=== PATIENT | female | born 1970 | race Caucasian/White ===

== ENCOUNTER → 2016-07-13 | Outpatient (CLI) | payer BC | LOC: FIMAGING 07:50 | DX: Z12.31 Encounter for screening mammogram for malignant neoplasm of breast (principal); Z80.3 Family history of malignant neoplasm of breast | CPT/HCPCS: G0202 ==

== ENCOUNTER 2016-11-23 21:40 | Emergency (ER) | payer BC ==
[2016-11-23 21:48] VITALS: RESP 18; TEMP 97.7; O2SAT 98
--- NOTE | 2016-11-23 22:06 | CPEKG ---
Heart Rate: 85 RR Interval: 706 P-R Interval: 140 QRSD Interval: 88 QT Interval: 372 QTC Interval: 443 P Bloomingrose: 69 QRS Bloomingrose: 69 T Wave Bloomingrose: 59 EKG Severity - NORMAL ECG - EKG Impression: SINUS RHYTHM Electronically Signed By: Enoch Henderson 23-Nov-2016 22:19:00
[2016-11-23] MEDS ORDERED: NS 1,000 ML IV ONE (22:11)
--- NOTE | 2016-11-23 22:16 | EDPHY ---
H & P Stated Complaint: BRIEF VISION LOSS IN R EYE AND DIFF SPEAKING RESOLVED Time Seen by Provider: 11/23/16 22:00 HPI/ROS: CHIEF COMPLAINT: Vision loss and trouble word finding HISTORY OF PRESENT ILLNESS: The patient is a 46-year-old female with a history of migraines including visual aura. She also has severe anxiety and stress and takes Klonopin and Lunesta. She denies other past medical history. She states that around 8 o'clock this evening she had an aura it in her right eye which include central vision loss. She then noticed that she had trouble with word finding. She could speak the 1st half of a sentence without any difficulty or slurring but then had trouble finding the right words to conclude the sentence. Her daughter told her she should call her sister and come to the hospital. Her symptoms resolved after about 15 minutes. She did not have a headache. She states that the visual changes are typical for her migraines but the trouble with word finding is not. She also typically has a headache afterwards and does not today. She did not have any weakness numbness or paresthesias. She did not have any imbalance. She denies recent trauma or infection. She is now asymptomatic except for extremely scared and anxious. REVIEW OF SYSTEMS: Constitutional: denies: chills, fever, recent illness, recent injury EENTM: denies: blurred vision, double vision, nose congestion Respiratory: denies: cough, shortness of breath Cardiac: denies: chest pain, irregular heart rate, lightheadedness, palpitations Gastrointestinal/Abdominal: denies: abdominal pain, diarrhea, nausea, vomiting, blood streaked stools Genitourinary: denies: dysuria, frequency, hematuria, pain Musculoskeletal: denies: joint pain, muscle pain Skin: denies: lesions, rash, jaundice, bruising Neurological: See HPI, denies: headache, numbness, paresthesia, tingling, dizziness, weakness Hematologic/Lymphatic: denies: blood clots, easy bleeding, easy bruising Immunologic/allergic: denies: HIV/AIDS, transplant EXAM: GENERAL: Well-appearing, well-nourished and in no acute distress. HEAD: Atraumatic, normocephalic. EYES: Pupils equal round and reactive to light, extraocular movements intact, sclera anicteric, conjunctiva are normal. ENT: TMs normal, nares patent, oropharynx clear without exudates. Moist mucous membranes. NECK: Normal range of motion, supple without lymphadenopathy or JVD. LUNGS: Breath sounds clear to auscultation bilaterally and equal. No wheezes rales or rhonchi. HEART: Regular rate and rhythm without murmurs, rubs or gallops. ABDOMEN: Soft, nontender, normoactive bowel sounds. No guarding, no rebound. No masses appreciated. BACK: No CVA tenderness, no spinal tenderness, step-offs or deformities EXTREMITIES: Normal range of motion, no pitting or edema. No clubbing or cyanosis. NEUROLOGICAL: Cranial nerves II through XII grossly intact. Normal speech, normal gait. 5/5 strength, normal movement in all extremities, normal sensation , normal reflexes, normal cerebellar exam PSYCH: Normal mood, normal affect. SKIN: Warm, dry, normal turgor, no visible rashes or lesions. Source: Patient Exam Limitations: No limitations - Personal History LMP (Females 10-55): 8-14 Days Ago Current Tetanus/Diphtheria Vaccine: Yes Current Tetanus Diphtheria and Acellular Pertussis (TDAP): Yes - Medical/Surgical History Hx Asthma: No Hx Chronic Respiratory Disease: No Hx Diabetes: No Hx Cardiac Disease: No Hx Renal Disease: No Hx Cirrhosis: No Hx Alcoholism: No Hx HIV/AIDS: No Hx Splenectomy or Spleen Trauma: No Other PMH: . WISDOM TEETH OUT 3 WEEKS AGO. MIGRAINES. - Family History Significant Family History: No pertinent family hx - Social History Smoking Status: Former smoker Alcohol Use: Sober Drug Use: None Constitutional: Initial Vital Signs Temperature (C) 36.5 C 11/23/16 21:42 Heart Rate 98 11/23/16 21:42 Respiratory Rate 18 11/23/16 21:42 Blood Pressure 115/81 H 11/23/16 21:42 O2 Sat (%) 98 11/23/16 21:42 O2 Delivery Mode Room Air Allergies/Adverse Reactions: No Known Allergies Allergy (Unverified 11/23/16 21:42) Home Medications: Medication Instructions Recorded CLONAZEPAM 11/23/16 Lunesta 11/23/16 Medical Decision Making - Diagnostics EKG Interpretation: An EKG obtained and was read and documented in trace view. Please see trace view for full reading and report. Sinus rhythm no acute ischemic changes Imaging Results: Imaging Impressions Brain MRI 11/23/16 22:11 Impression: Normal MRI examination of the brain.. Results called to Dr. Henderson at 11:15 PM. Imaging: Discussed imaging studies w/ journeyman tool and die maker Radiologist ED Course/Re-evaluation: 11:15 p.m. the patient remains asymptomatic. She is relieved with the MRI results. I will page Neurology to discuss. 11:21 p.m. I discussed the case with Dr. Hernandez from Neurology. He agrees that this is likely a migraine and feels safe discharging the patient. 11:25 p.m. I discussed the plan with the patient. She is feeling completely better and is eager to go home. She is relieved. I will have her follow up with Neurology. Differential Diagnosis: Partial list of the Differential diagnosis considered include but were not limited to; migraine, TIA and although unlikely based on the history and physical exam, I also considered CVA, tumor aneurysm, trauma, infection. I discussed these differential diagnoses and the plan with the patient as well as the usual and expected course. The patient understands that the diagnosis is provisional and that in medicine we are not always correct and that further workup is often warranted. Usual and customary warnings were given. All of the patient's questions were answered. The patient was instructed to return to the emergency department should the symptoms at all worsen or return, otherwise to followup with the physician as we discussed. - Data Points Laboratory Results: Laboratory Results 11/23/16 22:17 11/23/16 22:17 11/23/16 11/23/16 11/23/16 22:17 22:17 22:17 WBC RBC Hgb Hct MCV MCH MCHC RDW Plt Count MPV Neut % (Auto) Lymph % (Auto) Spink % (Auto) Eos % (Auto) Baso % (Auto) Nucleat RBC Rel Count Absolute Neuts (auto) Absolute Lymphs (auto) Absolute Monos (auto) Absolute Eos (auto) Absolute Basos (auto) Absolute Nucleated RBC Immature Gran % Immature Gran # PT 13.2 SEC SEC (12.0-15.0) INR 1.01 (0.83-1.16) APTT 29.6 SEC SEC (23.0-38.0) Sodium 142 mEq/L mEq/L (134-144) Potassium 4.5 mEq/L mEq/L (3.5-5.2) Chloride 107 mEq/L mEq/L (97-110) Carbon Dioxide 23 mEq/l mEq/l (22-31) Anion Gap 12 mEq/L mEq/L (8-16) BUN 6 mg/dL L mg/dL (7-23) Creatinine 0.7 mg/dL mg/dL (0.6-1.0) Estimated GFR > 60 Glucose 89 mg/dL mg/dL (70-100) Calcium 10.0 mg/dL mg/dL (8.5-10.4) Beta HCG, Qual NEGATIVE 11/23/16 22:17 WBC 7.56 10^3/uL 10^3/uL (3.80-9.50) RBC 4.63 10^6/uL 10^6/uL (4.18-5.33) Hgb 13.6 g/dL g/dL (12.6-16.3) Hct 40.8 % % (38.0-47.0) MCV 88.1 fL fL (81.5-99.8) MCH 29.4 pg pg (27.9-34.1) MCHC 33.3 g/dL g/dL (32.4-36.7) RDW 12.8 % % (11.5-15.2) Plt Count 279 10^3/uL 10^3/uL (150-400) MPV 10.4 fL fL (8.7-11.7) Neut % (Auto) 46.2 % % (39.3-74.2) Lymph % (Auto) 37.2 % % (15.0-45.0) Spink % (Auto) 12.8 % % (4.5-13.0) Eos % (Auto) 2.9 % % (0.6-7.6) Baso % (Auto) 0.8 % % (0.3-1.7) Nucleat RBC Rel Count 0.0 % % (0.0-0.2) Absolute Neuts (auto) 3.49 10^3/uL 10^3/uL (1.70-6.50) Absolute Lymphs (auto) 2.81 10^3/uL 10^3/uL (1.00-3.00) Absolute Monos (auto) 0.97 10^3/uL H 10^3/uL (0.30-0.80) Absolute Eos (auto) 0.22 10^3/uL 10^3/uL (0.03-0.40) Absolute Basos (auto) 0.06 10^3/uL 10^3/uL (0.02-0.10) Absolute Nucleated RBC 0.00 10^3/uL 10^3/uL (0-0.01) Immature Gran % 0.1 % % (0.0-1.1) Immature Gran # 0.01 10^3/uL 10^3/uL (0.00-0.10) PT INR APTT Sodium Potassium Chloride Carbon Dioxide Anion Gap BUN Creatinine Estimated GFR Glucose Calcium Beta HCG, Qual Medications Given: Discontinued Medications Sodium Chloride (Ns) 1,000 mls @ 500 mls/hr IV EDNOW ONE PRN Reason: Protocol Stop: 11/24/16 00:10 Last Admin: 11/23/16 22:24 Dose: 1,000 mls Lorazepam (Ativan) 1 mg PO EDNOW ONE Stop: 11/23/16 22:29 Last Admin: 11/23/16 22:31 Dose: 1 mg Departure - Departure Disposition: Home, Routine, Self-Care Clinical Impression: Migraine aura without headache Condition: Fair Instructions: Migraine Headache (ED) Referrals: Ravi Linares DO [Medical Doctor] - As per Instructions
[2016-11-23] MEDS ORDERED: LORazepam 1 MG TAB PO ONE (22:28)
[2016-11-23 22:37] LABS: % IMMATURE GRANULYOCYTES 0.1 % (0.0-1.1); ABSOLUTE IMMATURE GRANULOCYTES 0.01 10^3/uL (0.00-0.10); ADD DIFF? NO; ADD MORPH? NO; ADD SCAN? NO; ATYPICAL LYMPHOCYTE FLAG 20 (0-99); FRAGMENT RBC FLAG 0 (0-99); HEMATOCRIT 40.8 % (38.0-47.0); HEMOGLOBIN 13.6 g/dL (12.6-16.3); LEFT SHIFT FLG 0 (0-99); LIPEMIA HEMOLYSIS FLAG 80 (0-99); MEAN CELL HEMOGLOBIN 29.4 pg (27.9-34.1); MEAN CELL HEMOGLOBIN CONCENTR. 33.3 g/dL (32.4-36.7); MEAN CELL VOLUME 88.1 fL (81.5-99.8); MEAN PLATELET VOLUME 10.4 fL (8.7-11.7); PLATELET CLUMPS FLAG 0 (0-99); PLATELET COUNT 279 10^3/uL (150-400); RED BLOOD CELL COUNT 4.63 10^6/uL (4.18-5.33); RED CELL DISTRIBUTION WIDTH 12.8 % (11.5-15.2)
[2016-11-23] MEDS ORDERED: GADOBUTROL 10 ML VIAL IVP ONE (22:42)
[2016-11-23 22:46] LABS: INR 1.01 (0.83-1.16); PROTIME(PATIENT) 13.2 SEC (12.0-15.0)
[2016-11-23 22:47] LABS: APTT 29.6 SEC (23.0-38.0)
[2016-11-23 22:55] LABS: ANION GAP 12 mEq/L (8-16); CARBON DIOXIDE 23 mEq/l (22-31); CHLORIDE 107 mEq/L (97-110); CREATININE 0.7 mg/dL (0.6-1.0); GLOMERULAR FILTRATION RATE > 60; GLUCOSE 89 mg/dL (70-100); POTASSIUM 4.5 mEq/L (3.5-5.2); SODIUM 142 mEq/L (134-144)
[2016-11-23 23:56] VITALS: BP 107/72; PULSE 86
== END 2016-11-23 23:56 | disposition home or self-care (01) ==
DX: G43.109 Migraine with aura, not intractable, without status migrainosus (principal); Z87.891 Personal history of nicotine dependence
CPT/HCPCS: A9585

== ENCOUNTER → 2017-08-14 | Outpatient (CLI) | payer BC | LOC: FIMAGING 08:51 | DX: Z12.31 Encounter for screening mammogram for malignant neoplasm of breast (principal); Z80.3 Family history of malignant neoplasm of breast ==

== ENCOUNTER → 2018-09-25 | Outpatient (CLI) | payer BC | LOC: FIMAGING 09:19 | DX: Z12.31 Encounter for screening mammogram for malignant neoplasm of breast (principal); Z80.3 Family history of malignant neoplasm of breast ==

== ENCOUNTER 2018-10-01 13:19 | Observation (INO) | payer BC ==
--- NOTE | 2018-10-01 05:32 | PDGENHP ---
History and Physical History and Physical: Assessment and Plan: 1. Rectocele Marie has a symptomatic rectocele and stress urinary incontinence. We reviewed all conservative and surgical options. At the end of our discussion she is interested in surgical repair. This will be a posterior colporrhaphy, perineorrhaphy, and mid urethral sling. She will return for a preoperative appointment. 2. Female stress incontinence Subjective Subjective: Patient ID: Marie Broderick is a 47 y.o. female who presents to [facility] for relapse. HPI Marie Broderick presents for a preoperative visit. She is scheduled for a posterior colporrhaphy, perineorrhaphy, and mid urethral sling. The risks, benefits, and alternatives were presented and informed consent was obtained. 40 minutes of this 40 minute appointment was spent counceling, reviewing the procedure in detail, and discussing the preoperative and postoperative instructions. Below is a copy of our prior visit note. Marie is a 47-year-old para 2 woman. She has noticed a bulge protruding from the back of her vagina. She finds it difficult at times to pass bowel movements unless she reduces the bulge. She also leaks urine with coughing laughing and sneezing. She has no difficulty emptying her bladder. She has done online research and think she has a rectocele. She lives in [place]. She is currently and not sexually active. PastMedicalHistory Past Medical History: Diagnosis Date Depression ADD Hypothyroidism Neurologic disorder Migraines PastSurgicalHistory Past Surgical History: Procedure Laterality Date BREAST SURGERY Augmentation/implant removal MALIK 2002 LIPOSUCTION 1994 WISDOM TOOTH EXTRACTION CURRENT MEDICATIONS: Current Outpatient Medications Medication Sig amphetamine-dextroamphetamine (AMPHETAMINE-DEXTROAMPHETAMINE) 20 mg tablet Take 1 tablet as instructed 2 times daily. One QAM and 1/2 QPM eszopiclone (LUNESTA) 3 mg tablet Take 3 mg by mouth nightly at bedtime. liothyronine (CYTOMEL) 25 mcg tablet No current facility-administered medications for this visit. ALLERGIES: Patient has no known allergies. I have reviewed, verified and agree with the past medical, surgical, , family, social and ROS history as documented by the RN today. Objective Objective: Vital Signs: There were no vitals taken for this visit. Physical Exam Gen: This is an alert, well developed woman in no distress. Neuro: She moves all extremities. Psych: She is appropriate, oriented, with normal affect. Neck: No thyroid enlargement, adenopathy, or tenderness. Lungs: Clear to ascultation, no wheezes or rales. Heart: Regular rate and rhythm without obvious murmurs. Abdomen: Soft, non-tender, without guarding, rebound, or masses. Extremities: No edema or cyanosis. Pelvic: Normal external genitalia. Non-gaping introitus, vagina without discharge, adequately estrogenized, is a grade 2/grade 3 mostly lower rectocele. The perineal body is thinned. Anal sphincter tone is normal. The urethra is mobile with obvious leakage of urine with strong coughing. Cervix without lesions or discharge. Uterus normal sized, mobile, non-tender. Adnexa non-tender without enlargement. DATA: I have reviewed the pertinent medical records. TIME/COMMUNICATION: I personally spent a total of 40 minutes. Of that 30 minutes was counseling/ coordination of patient's care. See my note above for details. Ta Aldrich MD Board Certified Female Pelvic Medicine and Reconstructive Surgery Director of Minimally Invasive Gynecologic Surgery, [facility] Surgeon in Minimally Invasive Gynecologic Surgery [facility] Surgeon in Robotic Surgery
[2018-10-01] MEDS ORDERED: ceFAZolin 2 GM/DEXTROSE 100 ML IV ONE (13:34)
[2018-10-01] MEDS ORDERED: GABAPENTIN 300 MG CAP PO ONE (13:34)
[2018-10-01] MEDS ORDERED: ACETAMINOPHEN 500 MG TAB PO ONE (13:34)
[2018-10-01] MEDS ORDERED: PHENAZOPYRIDINE HCL 200 MG TAB PO ONE (13:34)
[2018-10-01] MEDS ORDERED: LR 1,000 ML IV ONE (13:35)
[2018-10-01] MEDS ORDERED: LIDOCAINE 1% 2 ML INJ ID PRN (13:35)
[2018-10-01] MEDS ORDERED: BUPIVACAINE 0.5% 30 ML SDV ONE (14:12)
--- NOTE | 2018-10-01 14:17 | PDANEPAE ---
ANE History of Present Illness here for rectocele repair ANE Past Medical History - Cardiovascular History Hx Hypertension: No Hx Arrhythmias: No Hx Chest Pain: No Hx Coronary Artery / Peripheral Vascular Disease: No Hx CHF / Valvular Disease: No Hx Palpitations: No - Pulmonary History Hx COPD: No Hx Asthma/Reactive Airway Disease: No Hx Recent Upper Respiratory Infection: No Hx Oxygen in Use at Home: No Hx Sleep Apnea: No Sleep Apnea Screening Result - Last Documented: Negative - Neurologic History Hx Cerebrovascular Accident: No Hx Seizures: No Hx Dementia: No Neurologic History Comment: MIGRAINES IN PAST - Endocrine History Hx Diabetes: No Endocrine History Comment: HYPOTHYROID - Renal History Hx Renal Disorders: No Renal History Comment: INCONT W/BLADDER W/COUGHING/SNEEZING - Liver History Hx Hepatic Disorders: No - Neurological & Psychiatric Hx Hx Neurological and Psychiatric Disorders: No - Cancer History Hx Cancer: No - Congenital Disorder History Hx Congenital Disorders: No - Other Health History Other Health History: NEG - Surgical History Prior Surgeries: WISDOM TEETH. BUNIONECTOMY. LASIK. BREAST AUGMENTATION. BREAST IMPLANTS REM ANE Review of Systems Review of Systems: - Exercise capacity Exercise capacity: >=4 METS METS (RN): 5 METS ANE Patient History - Allergies Allergies/Adverse Reactions: No Known Allergies Allergy (Unverified 10/01/18 13:42) - Home Medications Home Medications: Adderall 10 MG (*) 09/18/18 [Last Taken Unknown] Cytomel 09/18/18 [Last Taken 09/30/18 20:00] Herbals/Supplements -Info Only 09/18/18 [Last Taken 09/21/18] - NPO status NPO Status: no food or drink >8 hours - Anes Hx Anes Hx: no prior problems - Smoking Hx Smoking Status: Former smoker - Alcohol Use Alcohol Use: None - Family Anes Hx Family Hx Anesthesia Complications: NEG ANE Labs/Vital Signs - Vital Signs Height: 166.37 cm Weight: 67.132 kg ANE Physical Exam - Airway Neck exam: FROM Mallampati Score: Class 2 Mouth exam: normal dental/mouth exam - Pulmonary Pulmonary: no respiratory distress, clear to auscultation - Cardiovascular Cardiovascular: regular rate and rhythym, no murmur, rub, or gallop - ASA Status ASA Status: II ANE Anesthesia Plan Anesthesia Plan: general endotracheal anesthesia
[2018-10-01] MEDS ORDERED: MIDAZOLAM 2 MG/2 ML VIAL IVP ONE (14:18)
--- NOTE | 2018-10-01 15:11 | PDHPUP ---
History & Physical Update H&P update statement: This history and physical update is based on an assessment of the patient which was completed after admission or registration (within 24 hours), but prior to the surgery/procedure. H&P update: H&P reviewed & patient examined, no change in patient's condition since H&P completed
[2018-10-01] MEDS ORDERED: fentaNYL 100 MCG/2 ML INJ ONE ×2 (15:20→16:54)
[2018-10-01] MEDS ORDERED: PROPOFOL 200 MG/20 ML VIAL ONE (15:20)
[2018-10-01] MEDS ORDERED: LIDOCAINE 2% 100 MG/5 ML SYR ONE (15:20)
--- NOTE | 2018-10-01 16:20 | POSTOPPROG ---
Post Op Note Date of Operation: 10/01/18 Surgeon: Ta Aldrich River Driver: Bhavna Clarke Anesthesia: GET(General Endotracheal) Pre-op Diagnosis: Rectocele, stress incontinence Post-op Diagnosis: Same Procedure: TOT sling, cysto, rectocele repair Findings: No injury seen Inf/Abcess present in the surg proc area at time of surgery?: No EBL: Minimal Complications: None Specimen(s): None
--- NOTE | 2018-10-01 16:27 | POSTANESTH ---
Post Anesthetic Evaluation Cardiovascular Status: Normal, Stable, Other, See Comment Respiratory Status: Requires Airway Assist Level of Consciousness/Mental Status: Moderately Sleepy Pain Control: Adequate, Prn Tx Ordered Nausea/Vomiting Control: Adequate, Prn Tx Ordered Complications Possibly Related to Anesthesia: None Noted
[2018-10-01] MEDS ORDERED: PROMETHAZINE HCL 25 MG/ML INJ IVP PRN (16:55)
[2018-10-01] MEDS ORDERED: HYDROCODONE/APAP 5/325 TAB PO PRN (16:55)
[2018-10-01] MEDS ORDERED: ACETAMINOPHEN 500 MG TAB PO PRN (16:55)
[2018-10-01] MEDS ORDERED: oxyCODONE IR 5 MG TAB PO PRN (16:55)
[2018-10-01] MEDS ORDERED: NALOXONE HCL 0.4 MG/ML INJ IVP PRN (16:55)
[2018-10-01] MEDS ORDERED: ONDANSETRON 4 MG/2 ML VIAL IVP PRN ×2 (16:55→21:33)
[2018-10-01] MEDS: fentaNYL 100 MCG/2 ML INJ IVP PRN ×2 (16:56→17:08)
[2018-10-01] MEDS ORDERED: DIAZEPAM 5 MG TAB ONE (18:08)
--- NOTE | 2018-10-01 18:10 | GOP ---
[f rep st] OPERATIVE REPORT DATE OF OPERATION: 10/01/2018 SURGEON: Ta Aldrich MD TECHNICAL MARKETING CONSULTANT: WOODY Palacios. ANESTHESIA: General. PREOPERATIVE DIAGNOSIS: 1. Symptomatic rectocele. 2. Stress urinary incontinence. POSTOPERATIVE DIAGNOSIS: 1. Symptomatic rectocele. 2. Stress urinary incontinence. PROCEDURE PERFORMED: 1. Transobturator sling. 2. Cystoscopy. 3. Rectocele repair with perineorrhaphy. FINDINGS: SPECIMENS: None. ESTIMATED BLOOD LOSS: 10 mL. DESCRIPTION OF PROCEDURE: The patient was taken to the operating room where she was identified. Gen eral anesthesia was administered and found to be adequate. She was placed in the lithotomy position and prepared and draped in normal sterile fashion. A Robles catheter was placed in her bladder. A mid urethral incision was made with a scalpel. Tunnels were created bilaterally out toward the obt urator internus muscles. Skin incisions were made over the obturator notches. The Halo trocar was p laced through the left skin incision, redirected around the ischial pubic rami, and out through the v aginal incision using a vaginal finger as a guide. The lateral sulci were examined, and no evidence of vaginal injury had occurred. The sling was then attached and brought out along the same course. The exact same procedure was performed on the patient's right side. The sling was then adjusted to a llow a small mid urethral gap. The vaginal epithelium was closed with 2-0 Vicryl, skin with 4-0 Snyder cryl. Cystoscopy was then performed. There was no evidence of bladder nor urethral injury seen. No suture or mesh was seen within the bladder nor urethra. A transverse incision was then made along the perineal body. The posterior vaginal epithelium was un dermined with the Metzenbaum scissors and incised sagittally. The epithelium was then dissected off the underlying rectovaginal connective tissue. The connective tissue was then plicated with multiple interrupted sutures of 0 Vicryl. The excess epithelium was then trimmed. 2-0 Vicryl suture was use d to close the incision. Vaginal packing was then placed. Anesthesia was reversed, and the patient taken the PACU awake, in stable condition. COMPLICATIONS: None. DISPOSITION: Patient stable to PACU. /[id number]/MODL
[2018-10-01] MEDS ORDERED: DIAZEPAM 5 MG TAB PO ONE (18:15)
[2018-10-01] MEDS ORDERED: HYDROmorphONE/DILAUDID 1 MG/ML INJ IVP PRN (21:33)
[2018-10-01] MEDS ORDERED: ONDANSETRON DISINTEGRATING 4 MG TAB PO PRN (21:33)
[2018-10-01] MEDS: HYDROCODONE/APAP 5/325 TAB PO PRN (22:50)
[2018-10-01] MEDS ORDERED: DOCUSATE SODIUM 100 MG CAP PO ONE (23:19)
[2018-10-01] MEDS: KETOROLAC 30 MG/1 ML SDV IVP SCH (23:23)
[2018-10-01] MEDS: DOCUSATE SODIUM 100 MG CAP PO SCH (23:50)
[2018-10-02] MEDS: KETOROLAC 30 MG/1 ML SDV IVP SCH ×3 (04:44→13:20)
[2018-10-02] MEDS: HYDROCODONE/APAP 5/325 TAB PO PRN (05:43)
[2018-10-02 08:13] VITALS: BP 106/65
[2018-10-02] MEDS: DOCUSATE SODIUM 100 MG CAP PO SCH (08:14)
[2018-10-02] MEDS ORDERED: DOCUSATE SODIUM 100 MG CAP PO SCH (09:00)
[2018-10-02] MEDS ORDERED: IBUPROFEN 600 MG TAB PO PRN ×2 (10:22→11:42)
[2018-10-02] MEDS ORDERED: POLYETHYLENE GLYCOL 3350 17 GM PKT PO SCH ×2 (10:30→11:45)
--- NOTE | 2018-10-02 10:48 | ASMTLACE ---
SUNDAYE Length of stay for Answers: 1 day current admission Acuity / Level of Answers: No Care: Did the patient have an inpatient admission? Comorbidities - select Answers: Other Notes: Hypothyroid all that apply # of Emergency department Answers: 0 visits in the last 6 months Score: 2 Date Signed: 10/02/2018 10:47 AM Electronically Signed By:Jolie Love RN
--- NOTE | 2018-10-02 10:52 | ASMTCMCOM ---
CM Note CM Note Notes: Pt came in for a scheduled surgery of a rectocele. No needs identified, she is discharging home today. DC Plan: Independent Date Signed: 10/02/2018 10:51 AM Electronically Signed By:Jolie Love RN
--- NOTE | 2018-10-02 11:07 | GDS ---
[f rep st] DISCHARGE SUMMARY DISCHARGE DIAGNOSES: 1. Symptomatic rectocele. 2. Stress urinary incontinence. PROCEDURES: 1. Transobturator sling. 2. Rectocele repair. 3. Cystoscopy. HOSPITAL COURSE: Marie is a 47-year-old female with symptomatic rectocele and stress incontinence. S he was taken to the operating room on 10/01/2018, and underwent the above-mentioned procedures. The procedure was performed late in the afternoon. She had difficulty voiding and some pain. As a resul t, she was observed overnight. The following morning, she was ambulating, voiding, and tolerating a general diet. She was discharged home on postoperative day #1 in good condition. Medications includ ed Brandywine and ibuprofen for pain. She is to follow up in the office 2 weeks after discharge. /[id number]/MODL
== END 2018-10-02 13:20 | disposition home or self-care (01) ==
LOC: FSGY 13:19 → F3N 21:34 → F3E 22:25
PROVIDERS: ADMIT Obstetrics & Gynecology; ATTEND Obstetrics & Gynecology
DX: N81.6 Rectocele (principal); N39.3 Stress incontinence (female) (male); E03.9 Hypothyroidism, unspecified
CPT/HCPCS: 57250; 57288; G0378; C1771; J0690; J1885; J2001; J2250; J2704; J3010

== ENCOUNTER 2018-10-16 22:50 | Emergency (ER) | payer BC | END 2018-10-17 01:14 | disposition home or self-care (01) ==